=== PATIENT | male | born 1975 | race Caucasian/White ===

== ENCOUNTER 2017-12-29 16:58 | Emergency (ER) | payer OTHER ==
[~2017-12-29] VITALS: Ht 170.1 cm; Wt 72.6 kg
[2017-12-29] MEDS ORDERED: NAPROSYN500 MG PO (17:19)
== END 2017-12-29 17:37 ==
LOC: ED 16:58
DX: S93.402A Sprain of unspecified ligament of left ankle, initial encounter (principal); R03.0 Elevated blood-pressure reading, without diagnosis of hypertension; Z88.0 Allergy status to penicillin; W17.2XXA Fall into hole, initial encounter; Y93.89 Activity, other specified; Y92.89 Other specified places as the place of occurrence of the external cause; Y99.8 Other external cause status